=== PATIENT | female | born 1935 | race Caucasian/White ===

== ENCOUNTER 2018-01-07 09:06 | Day surgery (SDC) | payer MEDICARE, OTHER ==
[2018-01-07] MEDS ORDERED: DIPRIVAN 200 MG/20 ML IV ONE (09:07)
[2018-01-07] MEDS ORDERED: Lactated Ringers 1,000 ML IV ONE (09:27)
[2018-01-07] MEDS ORDERED: Lactated Ringers 1,000 ML IV SCH (09:45)
[2018-01-07] MEDS ORDERED: TETRACAINE 0.5% STERI-UNIT SOL OP ONE ×2 (09:45)
[2018-01-07] MEDS ORDERED: Ak-Dilate OPHTHALMIC*** 0.71 ML, Cyclogyl 1% OPHTH SOL 5 ML 0.71 ML, GATIFLOXACIN 0.5% ... OP ONE ×4 (09:45)
[2018-01-07] MEDS ORDERED: Zofran 4 MG/2 ML VIAL IV PRN (10:00)
[2018-01-07] MEDS ORDERED: ACETAZOLAMIDE 250 MG TABLET PO ONE (10:00)
[2018-01-07] MEDS ORDERED: BETADINE 5% OPHTHALMIC 30 ML OP ONE (11:00)
[2018-01-07] MEDS ORDERED: BSS 500 ML, Fortaz/Tazicef 1 GM** 0.2 G IO ONE ×2 (11:30)
[2018-01-07] MEDS ORDERED: LIDOCAINE HCL 1% AMPUL 5 ML IJ ONE (11:30)
[2018-01-07] MEDS ORDERED: Epinephrine Preservative Free 1 MG/ML INTRAOP ONE (11:30)
[2018-01-07] MEDS ORDERED: TYLENOL EXTRA STRENGTH 500 MG ONE (12:26)
[2018-01-07 12:30] VITALS: O2SAT 100
[2018-01-07] MEDS ORDERED: TYLENOL EXTRA STRENGTH 500 MG PO STA (12:35)
[2018-01-07 12:53] VITALS: PULSE 52
--- NOTE | 2018-01-07 13:34 | OP ---
DATE/TIME OF OPERATION: 01/07/2018 1136 TIME DICTATED: 1255 PREOPERATIVE DIAGNOSIS: Senile cataract of left eye. POSTOPERATIVE DIAGNOSIS: Senile cataract of left eye. SURGEON: Roxanne Stubbs MD CLAIM PROCESSING SPECIALIST: None. OPERATION: Cataract extraction of left eye with an intraocular lens implant. STANDARD __X___ COMPLEX ANESTHESIA: MAC. ___X___ Monitored anesthesia care in combination with topical and intra-cameral anesthesia (because of the established specific risk of reflux, arrhythmias, or an anxiety attack associated with ocular manipulation as well as difficulty of the armorer technician to manage such potentially catastrophic events while simultaneously attempting to complete the surgical procedure, it was deemed necessary for the patient's safety to have an anesthesiologist or a nurse insurance compliance analyst present during the procedure whenever possible. The anesthesiologist or the nurse insurance compliance analyst was utilized to monitor and regulate the intravenous sedation of the patient, so the patient was cooperative, relaxed, and comfortable). Topical anesthesia using Tetracaine eye drops together with intra cameral anesthesia using Lidocaine 1% MPF. The nurse was utilized to monitor the patient. ANESTHESIA PROVIDER: Edgar Murray CRNA. COMPLICATIONS: None. BLOOD LOSS: None. INDICATIONS: The patient is undergoing cataract surgery in the hopes of eliminating the visual complaints and difficulty. PROCEDURE: After arriving at the facility's outpatient surgery area, an IV was started; the patient was given 5 mg of p.o. Versed. (If an anesthesia provider was not monitoring the patient) The patient was then given topical anesthetic Tetracaine eye drops. A cotton pellet was soaked into a solution of a combination of Zymaxid 0.5%, Ignacio-Synephrine 2.5% and Ocufen (other drops might have been substituted referenced in the patient's record). The pellet was inserted by the RN into the lower conjunctival cul-de-sac with a sterile forceps and left for 20 minutes. The pellet was then removed by the RN with a sterile forceps before taking the patient to the operating room. The preoperative area nurse identified the patient and marked the correct eye to be operated on. I identified the correct eye to be operated on and marked it appropriately in the outpatient surgery area. The patient was then taken into the operating room. Tetracaine eye drops were installed again in the correct eye. The eyelids and the lashes and the lid margins were scrubbed with Betadine solution. One drop of the diluted Betadine solution was placed in the conjunctival cul-de-sac for 45 seconds and then was irrigated. A drop of Tetracaine Gel was placed in the conjunctival cul-de-sac. The patient's forehead was taped to secure it during the procedure. The patient was monitored. The patient was then draped in the usual way for this procedure. An eye speculum was used to separate the eyelids. The eye was then fixated and a temporal 2.5 mm incision was made in the clear cornea temporally at the limbus. Through the incision, 0.25 cc of 1% non-preserved lidocaine was injected into the anterior chamber for intracameral anesthesia. The anterior chamber was then filled with viscoelastic. The pupil was small. I felt that it would be safer to mechanically dilate the pupil. A Malyugin ring was used at this point which dilated the pupil. That was removed at the end of the procedure prior to aspiration of the viscoelastic from the anterior chamber and posterior to the intraocular lens implant. The cataract had a great amount of cortical changes. That rendered seeing the anterior capsule difficult for a safe performance of an anterior capsulotomy. I injected an air bubble into the anterior chamber. I then injected 1 ML of vision blue solution into the anterior chamber. The vision blue solution was irrigated from the anterior chamber after 30 seconds. The anterior capsule was stained which facilitated performing the anterior capsulotomy safely. After that was completed, a cystotome was introduced into the anterior chamber and a round anterior capsulotomy was performed. The capsule was removed by a forceps. Hydrodissection was next carried utilizing a 25-gauge cannula and balanced salt solution to delineate the cortical material from the capsule and the nucleus from the cortical material. The nucleus was rotated freely into the capsular bag with no difficulty. The phaco tip of the [employer] Phacoemulsifier was introduced into the anterior chamber and two grooves were made into the nucleus 90 degrees apart. Using two spatulas resulted into the nucleus being fractured into four quadrants. The phaco tip was then used to remove each quadrant of the nucleus. Viscoelastic was used during this process to protect the corneal endothelium. Once the entire nucleus was removed, the phaco tip then was removed and the irrigation tip was introduced into the eye and the cortex was removed. The posterior capsule was polished. It was noticed that there was a tear into the posterior capsule with few vitreous strands into the pupil plan. An anterior vitrectomy was performed. A 23.00 diopter, SN60WF, posterior chamber lens implant, was inspected and found to be grossly normal. The implant was inserted into the implant injector cartridge; Viscoelastic again was introduced into the anterior chamber, which filled the capsular bag. The implant injector's cartridge tip was placed at the limbal wound and the posterior chamber implant was released into the capsular bag and rotated appropriately. The implant was found to be into the capsular bag and it was centered. __X___ 0.2 ml of Tri-Moxi was introduced via 27 gauge cannula into the vitreous cavity through the ciliary processes. Viscoelastic was aspirated from the anterior chamber and posterior to the intraocular lens implant from the capsular bag using the irrigating tip. The anterior chamber was irrigated and filled with 5 cc antibiotic solution (500 cc of BSS plus 2 ml of Fortaz 100 mg/ml) ( if patient was not allergic to the medication). The lips of the corneal incision were hydrated using BSS solution. The anterior chamber was checked and found to be water tight. One drop each of antibiotic, steroid and NSAID drops (refer to chart for drops used) were placed in the conjunctival cul-de-sac of the operated eye. Patient tolerated the procedure quite well and left the operating room in satisfactory condition. DISCHARGE SUMMARY: The patient was released in stable condition. The patient and those with the patient were given an instruction sheet as of how to care for the eye after surgery as well as counseling on any abnormal laboratory studies by the postoperative RN. The patient was also given an appointment card for follow-up in the office and is to call immediately for any difficulties including but not limited to pain in the eye, decreased vision, discharge from the eye, headache and or fever. DISCHARGE DIAGNOSIS: Pseudophakia of left eye.
[2018-01-07 13:50] VITALS: BP 137/89
== END 2018-01-07 13:08 | disposition home or self-care (01) ==
LOC: SDC 09:06
PROVIDERS: ATTEND Ophthalmology
DX: H25.9 Unspecified age-related cataract (principal); I10 Essential (primary) hypertension; E78.00 Pure hypercholesterolemia, unspecified; E07.9 Disorder of thyroid, unspecified; Z79.899 Other long term (current) drug therapy
CPT/HCPCS: 66984; 67005; 94250; C1780; 99100; J0171; J2704; A9270-GY

== ENCOUNTER 2018-02-11 07:19 | Day surgery (SDC) | payer MEDICARE, OTHER ==
[~2018-02-11 07:19] MED LIST: Lactated Ringers 1,000 ML IV ONE
[2018-02-11] MEDS ORDERED: DIPRIVAN 200 MG/20 ML IV ONE (07:20)
[2018-02-11 07:57] VITALS: O2SAT 98
[2018-02-11] MEDS ORDERED: TETRACAINE 0.5% STERI-UNIT SOL OP ONE ×2 (08:00)
[2018-02-11] MEDS ORDERED: Lactated Ringers 1,000 ML IV SCH (08:00)
[2018-02-11] MEDS ORDERED: Ak-Dilate OPHTHALMIC*** 1.065 ML, Cyclogyl 1% OPHTH SOL 5 ML 1.065 ML, GATIFLOXACIN 0.5... OP ONE ×4 (08:00)
[2018-02-11] MEDS ORDERED: ACETAZOLAMIDE 250 MG TABLET PO ONE (10:00)
[2018-02-11] MEDS ORDERED: Zofran 4 MG/2 ML VIAL IV PRN (10:00)
[2018-02-11] MEDS ORDERED: BSS 500 ML, Fortaz/Tazicef 1 GM** 0.2 G IO ONE ×2 (10:00)
[2018-02-11] MEDS ORDERED: LIDOCAINE HCL 1% AMPUL 5 ML IJ ONE (10:00)
[2018-02-11] MEDS ORDERED: Epinephrine Preservative Free 1 MG/ML INTRAOP ONE (10:00)
[2018-02-11] MEDS ORDERED: BETADINE 5% OPHTHALMIC 30 ML OP ONE (10:00)
[2018-02-11 11:32] VITALS: BP 125/78; PULSE 63
--- NOTE | 2018-02-11 15:02 | OP ---
DATE/TIME OF OPERATION: 02/11/2018 0956 TIME DICTATED: 1208 PREOPERATIVE DIAGNOSIS: Senile cataract of right eye. POSTOPERATIVE DIAGNOSIS: Senile cataract of right eye. SURGEON: Roxanne Stubbs MD HOUSE PAINTING INSTRUCTOR: None. OPERATION: Cataract extraction of right eye with an intraocular lens implant. STANDARD __X___ COMPLEX ANESTHESIA: MAC. ___X___ Monitored anesthesia care in combination with topical and intra-cameral anesthesia (because of the established specific risk of reflux, arrhythmias, or an anxiety attack associated with ocular manipulation as well as difficulty of the special education tutor to manage such potentially catastrophic events while simultaneously attempting to complete the surgical procedure, it was deemed necessary for the patient's safety to have an anesthesiologist or a nurse service restorer emergency present during the procedure whenever possible. The anesthesiologist or the nurse service restorer emergency was utilized to monitor and regulate the intravenous sedation of the patient, so the patient was cooperative, relaxed, and comfortable). Topical anesthesia using Tetracaine eye drops together with intra cameral anesthesia using Lidocaine 1% MPF. The nurse was utilized to monitor the patient. ANESTHESIA PROVIDER: Adrian Matias CRNA. COMPLICATIONS: None. BLOOD LOSS: None. INDICATIONS: The patient is undergoing cataract surgery in the hopes of eliminating the visual complaints and difficulty. PROCEDURE: After arriving at the facility's outpatient surgery area, an IV was started; the patient was given 5 mg of p.o. Versed. (If an anesthesia provider was not monitoring the patient) The patient was then given topical anesthetic Tetracaine eye drops. A cotton pellet was soaked into a solution of a combination of Zymaxid 0.5%, Ignacio-Synephrine 2.5% and Ocufen (other drops might have been substituted referenced in the patient's record). The pellet was inserted by the RN into the lower conjunctival cul-de-sac with a sterile forceps and left for 20 minutes. The pellet was then removed by the RN with a sterile forceps before taking the patient to the operating room. The preoperative area nurse identified the patient and marked the correct eye to be operated on. I identified the correct eye to be operated on and marked it appropriately in the outpatient surgery area. The patient was then taken into the operating room. Tetracaine eye drops were installed again in the correct eye. The eyelids and the lashes and the lid margins were scrubbed with Betadine solution. One drop of the diluted Betadine solution was placed in the conjunctival cul-de-sac for 45 seconds and then was irrigated. A drop of Tetracaine Gel was placed in the conjunctival cul-de-sac. The patient's forehead was taped to secure it during the procedure. The patient was monitored. The patient was then draped in the usual way for this procedure. An eye speculum was used to separate the eyelids. The eye was then fixated and a temporal 2.5 mm incision was made in the clear cornea temporally at the limbus. Through the incision, 0.25 cc of 1% non-preserved lidocaine was injected into the anterior chamber for intracameral anesthesia. The anterior chamber was then filled with viscoelastic. The pupil was small. I felt that it would be safer to mechanically dilate the pupil. A Malyugin ring was used at this point which dilated the pupil. That was removed at the end of the procedure prior to aspiration of the viscoelastic from the anterior chamber and posterior to the intraocular lens implant. The cataract had a great amount of cortical changes. That rendered seeing the anterior capsule difficult for a safe performance of an anterior capsulotomy. I injected an air bubble into the anterior chamber. I then injected 1 ML of vision blue solution into the anterior chamber. The vision blue solution was irrigated from the anterior chamber after 30 seconds. The anterior capsule was stained which facilitated performing the anterior capsulotomy safely. After that was completed, a cystotome was introduced into the anterior chamber and a round anterior capsulotomy was performed. The capsule was removed by a forceps. Hydrodissection was next carried utilizing a 25-gauge cannula and balanced salt solution to delineate the cortical material from the capsule and the nucleus from the cortical material. The nucleus was rotated freely into the capsular bag with no difficulty. The phaco tip of the [employer] Phacoemulsifier was introduced into the anterior chamber and two grooves were made into the nucleus 90 degrees apart. Using two spatulas resulted into the nucleus being fractured into four quadrants. The phaco tip was then used to remove each quadrant of the nucleus. Viscoelastic was used during this process to protect the corneal endothelium. Once the entire nucleus was removed, the phaco tip then was removed and the irrigation tip was introduced into the eye and the cortex was removed. The posterior capsule was polished. It was noticed that there was a tear into the posterior capsule with few vitreous strands into the pupil plan. An anterior vitrectomy was performed. A 23.00 diopter, SN60WF, posterior chamber lens implant, was inspected and found to be grossly normal. The implant was inserted into the implant injector cartridge; Viscoelastic again was introduced into the anterior chamber, which filled the capsular bag. The implant injector's cartridge tip was placed at the limbal wound and the posterior chamber implant was released into the capsular bag and rotated appropriately. The implant was found to be into the capsular bag and it was centered. __X__ 0.2 ml of Tri-Moxi was introduced via 27 gauge cannula into the vitreous cavity through the ciliary processes. Viscoelastic was aspirated from the anterior chamber and posterior to the intraocular lens implant from the capsular bag using the irrigating tip. The anterior chamber was irrigated and filled with 5 cc antibiotic solution (500 cc of BSS plus 2 ml of Fortaz 100 mg/ml) ( if patient was not allergic to the medication). The lips of the corneal incision were hydrated using BSS solution. The anterior chamber was checked and found to be water tight. One drop each of antibiotic, steroid and NSAID drops (refer to chart for drops used) were placed in the conjunctival cul-de-sac of the operated eye. Patient tolerated the procedure quite well and left the operating room in satisfactory condition. DISCHARGE SUMMARY: The patient was released in stable condition. The patient and those with the patient were given an instruction sheet as of how to care for the eye after surgery as well as counseling on any abnormal laboratory studies by the postoperative RN. The patient was also given an appointment card for follow-up in the office and is to call immediately for any difficulties including but not limited to pain in the eye, decreased vision, discharge from the eye, headache and or fever. DISCHARGE DIAGNOSIS: Pseudophakia of right eye.
== END 2018-02-11 11:33 | disposition home or self-care (01) ==
LOC: SDC 07:19
PROVIDERS: ATTEND Ophthalmology
DX: H25.9 Unspecified age-related cataract (principal); I10 Essential (primary) hypertension; E78.00 Pure hypercholesterolemia, unspecified; E07.9 Disorder of thyroid, unspecified
CPT/HCPCS: 94250; 99100; C1780; J0171; J2704; A9270-GY

== ENCOUNTER 2019-08-29 15:52 | Emergency (ER) | payer MEDICARE, OTHER ==
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
[2019-08-29 19:20] VITALS: BP 168/73; PULSE 68; O2SAT 98
[2019-08-29] MEDS ORDERED: NORCO 5/325 MG PO ONE (19:37)
[2019-08-29] MEDS ORDERED: NORCO 5/325 MG ONE (20:04)
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
== END 2019-08-29 21:18 | disposition home or self-care (01) ==
LOC: ED 15:52
DX: M84.474A Pathological fracture, right foot, initial encounter for fracture (principal); V57.0XXA Driver of pick-up truck or van injured in collision with fixed or stationary object in nontraffic accident, initial encounter; Y93.9 Activity, unspecified; Y92.9 Unspecified place or not applicable; I10 Essential (primary) hypertension; E03.9 Hypothyroidism, unspecified; E78.00 Pure hypercholesterolemia, unspecified; S00.31XA Abrasion of nose, initial encounter; Z79.899 Other long term (current) drug therapy; Z85.42 Personal history of malignant neoplasm of other parts of uterus
CPT/HCPCS: 70450; 70486; 73080; 73552; 73560; 73590; 73610; 73630; 99284; A9270-GY

== ENCOUNTER 2020-04-17 20:30 | Emergency (ER) | payer MEDICARE, OTHER ==
[2020-04-17] MEDS ORDERED: APRESOLINE 20 MG/ML INJ IV ONE (20:54)
[2020-04-17] MEDS ORDERED: Catapres 0.1 MG PO ONE (20:54)
[2020-04-17] MEDS ORDERED: NORVASC 5 MG PO ONE (20:55)
[2020-04-17] MEDS ORDERED: Catapres 0.1 MG ONE (21:04)
[2020-04-17] MEDS ORDERED: NORVASC 5 MG ONE (21:05)
[2020-04-17] MEDS ORDERED: Vasotec 10 MG ONE (21:07)
[2020-04-17 21:10] LABS: Absolute Neutrophil Ct (ANC) 6.15 (1.4-6.9); BASOPHIL % 0.1 % (0.0-0.4); Basophil (Absolute #) 0.01 (0-0.4); Eosinophil (Absolute #) 0 (0-0.5); Hematocrit 40.8 % (35-47); Hemoglobin 12.9 gm/dl (12.0-16.0); Lymphocytes % 16.8 % (24.0-44.0); Mean Cell Volume 98.8 fl (78-100); Mean Corpuscular Hemoglobin 31.2 pg (26-32); Mean Corpuscular Hgb Concent. 31.6 g/dl (32-36); Mean Platelet Volume 9.9 fl (7.5-11.0); Monocyte (Absolute #) 0.76 (0.0-1.3); Monocytes % 9.1 % (0.0-12.0); Platelet Count 231 K/mm3 (150-450); Red Blood Count 4.13 M/mm3 (4.1-5.4); Red Cell Distribution Width 13.5 % (11.5-14.0); White Blood Count 8.3 K/mm3 (4.0-10.5)
[2020-04-17 21:15] LABS: ALBUMIN 4.4 g/dL (3.5-5.0); ANION GAP 12.9 MEQ/L (5-15); BILIRUBIN,TOTAL 0.3 mg/dL (0.2-1.3); Calcium 9.3 mg/dL (8.4-10.2); Creatinine 1 1.11 mg/dL (0.52-1.04); EST GLOMERULAR FILTRATION RATE 49.8 ML/MIN; Potassium 4.8 mmol/L (3.5-5.1); Total Protein 7.5 g/dL (6.3-8.2)
[2020-04-17 21:28] VITALS: O2SAT 96
[2020-04-17 21:50] LABS: Appearance CLEAR (CLEAR); Bilirubin NEGATIVE (NEGATIVE); Blood NEGATIVE Ery/ul (0-5); Epithelial Cells RARE /HPF (FEW); Glucose 50 mg/dL (NEGATIVE); Ketones NEGATIVE (NEGATIVE); Leukocyte Esterase NEGATIVE (NEGATIVE); Mucus SLIGHT /HPF (NEGATIVE); Nitrite NEGATIVE (NEGATIVE); Protein,Urine Dip NEGATIVE (Negative); Specific Gravity 1.008 (1.005-1.025); Urobilinogen NEGATIVE mg/dL (0-1); WBC 0-2 /HPF (0-5)
[2020-04-17 21:52] LABS: Bacteria NONE SEEN /HPF (NEGATIVE)
[2020-04-17 22:04] VITALS: BP 152/82; PULSE 67
--- NOTE | 2020-04-17 22:04 | ERPHSYRPT ---
- History of Present Illness Time Seen by Provider: 04/17/20 20:45 Exam Limitations: no limitations Patient Subjective Stated Complaint: pt to ER with complaints of high blood pressure since last saturday. pt states she might have shingles on her head. pt states she has been taking her BP meds normally. Triage Nursing Assessment: pt to ER with hypertension. A&Ox4. ambulatory. skin pwd. Physician History: Patient is a 85-year-old white female who presents with a complaint of some headache and elevated blood pressure. Her blood pressure has apparently been elevated for the last 5 days. She also is being treated for shingles on a clinical basis from [facility]. She had not developed a rash. She has been on enalapril 5 mg daily and amlodipine 2.5 daily. Timing/Duration: day(s) (5) Activities at Onset: none Quality: sharpness Aspirin Treatment Today: no aspirin today Associated Symptoms: denies symptoms Prior Chest Pain/Cardiac Workup: no prior chest pain Allergies/Adverse Reactions: No Known Drug Allergies Allergy (Verified 04/17/20 20:44) Home Medications: Enalapril Maleate 10 mg PO DAILY 01/07/18 [History] Estradiol 1 mg [Estrace 1 mg] 1 mg PO DAILY 01/07/18 [History] Levothyroxine Sodium [Levoxyl] 50 mcg PO DAILY 01/07/18 [History] Simvastatin 20Mg [Zocor 20Mg] 20 mg PO DAILY 01/07/18 [History] Alprazolam 0.5 mg [xanAX 0.5 MG] 0.5 mg PO DAILY 08/29/19 [History] Famotidine [Pepcid] 40 mg PO DAILY 08/29/19 [History] Omeprazole 40 mg PO DAILY 04/17/20 [History] Hx Tetanus, Diphtheria Vaccination/Date Given: No Hx Influenza Vaccination/Date Given: Yes Hx Pneumococcal Vaccination/Date Given: No Immunizations Up to Date: Yes Travel Risk - International Travel Have you traveled outside of the country in past 3 weeks: No - Coronavirus Screening Are you exhibiting any of the following symptoms?: No Close contact with a COVID-19 positive Pt in past 14-21 Days: No - Review of Systems Constitutional: No Fever, No Chills Eyes: No Symptoms Ears, Nose, & Throat: No Symptoms Respiratory: No Cough, No Dyspnea Cardiac: No Chest Pain, No Edema, No Syncope Abdominal/Gastrointestinal: No Abdominal Pain, No Nausea, No Vomiting, No Diarrhea Genitourinary Symptoms: No Dysuria Musculoskeletal: No Back Pain, No Neck Pain Skin: No Rash Neurological: Headache, No Dizziness, No Focal Weakness, No Sensory Changes Psychological: No Symptoms Endocrine: No Symptoms All Other Systems: Reviewed and Negative - Past Medical History Pertinent Past Medical History: Yes Neurological History: No Pertinent History ENT History: Cataracts Cardiac History: High Cholesterol, Hypertension Respiratory History: No Pertinent History Endocrine Medical History: Hypothyroidism Musculoskeletal History: Arthritis GI Medical History: Ulcer History: No Pertinent History Psycho-Social History: No Pertinent History Female Reproductive Disorders: Uterine Cancer - Past Surgical History Past Surgical History: Yes Neuro Surgical History: No Pertinent History Cardiac: No Pertinent History Respiratory: No Pertinent History Gastrointestinal: No Pertinent History Genitourinary: No Pertinent History Musculoskeletal: No Pertinent History Female Surgical History: Hysterectomy, Other Other Surgical History: cyst removed from ovary - Social History Smoking Status: Never smoker Exposure to second hand smoke: No Drug Use: none Patient Lives Alone: No - Female History Hx Now: No - Nursing Vital Signs Nursing Vital Signs: Initial Vital Signs Temperature 98.5 F 04/17/20 20:36 Pulse Rate 78 04/17/20 20:36 Respiratory Rate 16 04/17/20 20:36 Blood Pressure 204/96 04/17/20 20:36 O2 Sat by Pulse Oximetry 97 04/17/20 20:36 Pain Scale Pain Intensity 6 - Physical Exam General Appearance: mild distress, alert Eye Exam: PERRL/EOMI, eyes nml inspection Ears, Nose, Throat Exam: normal ENT inspection, moist mucous membranes Neck Exam: normal inspection, non-tender, supple Respiratory Exam: normal breath sounds, lungs clear, No respiratory distress Cardiovascular Exam: regular rate/rhythm, normal heart sounds, No edema Gastrointestinal/Abdomen Exam: soft, No tenderness, No mass Back Exam: normal inspection, No CVA tenderness, No vertebral tenderness Extremity Exam: normal inspection, normal range of motion Neurologic Exam: alert, oriented x 3, cooperative, normal mood/affect, nml cerebellar function, sensation nml, No motor deficits Skin Exam: normal color, warm, dry Lymphatic Exam: No adenopathy SpO2: 96 Ordered Tests: Active Orders 24 hr Category Date Time Status CBC W DIFF Stat Lab 04/17/20 21:06 Completed CMP Stat Lab 04/17/20 21:06 Completed UA W/RFX UR CULTURE Stat Lab 04/17/20 21:21 Completed Medication Summary Generic Name Dose Route Start Last Admin Trade Name Hubert PRN Reason Stop Dose Admin Enalapril Maleate 10 mg 04/18/20 10:00 04/17/20 21:12 Vasotec 10 Mg PO 05/18/20 09:59 10 mg DAILY DAMIEN Administration Discontinued Medications Generic Name Dose Route Start Last Admin Trade Name Hubert PRN Reason Stop Dose Admin Amlodipine Besylate 10 mg 04/17/20 20:55 04/17/20 21:11 Norvasc 5 Mg PO 04/17/20 20:56 10 mg STAT ONE Administration Amlodipine Besylate Confirm 04/17/20 21:05 Norvasc 5 Mg Administered 04/17/20 21:06 Dose 10 mg .ROUTE .STK-MED ONE Clonidine 0.1 mg 04/17/20 20:54 04/17/20 21:09 Catapres 0.1 Mg PO 04/17/20 20:55 0.1 mg STAT ONE Administration Clonidine Confirm 04/17/20 21:04 Catapres 0.1 Mg Administered 04/17/20 21:05 Dose 0.1 mg .ROUTE .STK-MED ONE Enalapril Maleate Confirm 04/17/20 21:07 Vasotec 10 Mg Administered 04/17/20 21:08 Dose 10 mg .ROUTE .STK-MED ONE Hydralazine HCl 10 mg 04/17/20 20:54 Apresoline 20 Mg/Ml Inj IV 04/17/20 20:55 STAT ONE Lab/Rad Data: Laboratory Result Diagrams 04/17/20 21:06 04/17/20 21:06 Laboratory Results 04/17/20 04/17/20 04/17/20 Range/Units 21:21 21:06 21:06 WBC 8.3 (4.0-10.5) K/mm3 RBC 4.13 (4.1-5.4) M/mm3 Hgb 12.9 (12.0-16.0) gm/dl Hct 40.8 (35-47) % MCV 98.8 (78-100) fl MCH 31.2 (26-32) pg MCHC 31.6 L (32-36) g/dl RDW 13.5 (11.5-14.0) % Plt Count 231 (150-450) K/mm3 MPV 9.9 (7.5-11.0) fl Gran % 74.0 H (36.0-66.0) % Eos # (Auto) 0 (0-0.5) Absolute Lymphs (auto) 1.40 (1.0-4.6) Absolute Monos (auto) 0.76 (0.0-1.3) Lymphocytes % 16.8 L (24.0-44.0) % Monocytes % 9.1 (0.0-12.0) % Eosinophils % 0.0 (0.00-5.0) % Basophils % 0.1 (0.0-0.4) % Absolute Granulocytes 6.15 (1.4-6.9) Basophils # 0.01 (0-0.4) Sodium 135 L (137-145) mmol/L Potassium 4.8 (3.5-5.1) mmol/L Chloride 103 (98-107) mmol/L Carbon Dioxide 24 (22-30) mmol/L Anion Gap 12.9 (5-15) MEQ/L BUN 20 H (7-17) mg/dL Creatinine 1.11 H (0.52-1.04) mg/dL Estimated GFR 49.8 ML/MIN Glucose 175 H (74-106) mg/dL Calcium 9.3 (8.4-10.2) mg/dL Total Bilirubin 0.30 (0.2-1.3) mg/dL AST 25 (14-36) U/L ALT 27 (0-35) U/L Alkaline Phosphatase 58 (38-126) U/L Serum Total Protein 7.5 (6.3-8.2) g/dL Albumin 4.4 (3.5-5.0) g/dL Urine Color YELLOW (YELLOW) Urine Appearance CLEAR (CLEAR) Urine pH 6.0 (5-6) Ur Specific Varina 1.008 (1.005-1.025) Urine Protein NEGATIVE (Negative) Urine Ketones NEGATIVE (NEGATIVE) Urine Blood NEGATIVE (0-5) Davin/ul Urine Nitrite NEGATIVE (NEGATIVE) Urine Bilirubin NEGATIVE (NEGATIVE) Urine Urobilinogen NEGATIVE (0-1) mg/dL Ur Leukocyte Esterase NEGATIVE (NEGATIVE) Urine WBC (Auto) 0-2 (0-5) /HPF Urine RBC (Auto) NONE (0-2) /HPF U Epithel Cells (Auto) RARE (FEW) /HPF Urine Bacteria (Auto) NONE SEEN (NEGATIVE) /HPF Urine Mucus (Auto) SLIGHT (NEGATIVE) /HPF Urine Culture Reflexed NO (NO) Urine Glucose 50 (NEGATIVE) mg/dL - Progress Progress: improved Blood Culture(s) Obtained: No Antibiotics given: No - Departure Departure Disposition: Home Clinical Impression: Hypertension Condition: Stable Critical Care Time: No Referrals: FAVIOLA BORRERO MD [Primary Care Provider] - Instructions: Malignant Hypertension (DC) Prescriptions: Amlodipine Besylate 5 mg PO DAILY 30 Days #30 tablet Enalapril Maleate 10 mg [Vasotec 10 MG] 10 mg PO DAILY 30 Days #30 tablet
[2020-04-18] MEDS ORDERED: Vasotec 10 MG PO SCH (10:00)
== END 2020-04-17 22:17 | disposition home or self-care (01) ==
LOC: ED 20:30
DX: I10 Essential (primary) hypertension (principal); R51.9 Headache, unspecified; Z79.899 Other long term (current) drug therapy; E78.00 Pure hypercholesterolemia, unspecified
CPT/HCPCS: 36415; 80053; 81001; 85025; 99284; A9270-GY

== ENCOUNTER 2021-07-28 19:51 | Emergency (ER) | payer MEDICARE, OTHER ==
--- NOTE | 2021-07-28 19:57 | ERPHSYRPT ---
- History of Present Illness Time Seen by Provider: 07/28/21 19:55 Source: patient Exam Limitations: no limitations Physician History: This is an 86-year-old white female who has chronic back pain and it has been acutely worsening. Patient was seen by nurse practitioner yesterday and there was a plain lumbar film performed which did not show anything acute. Patient has not had any loss of bowel function or urinary bladder incontinence. She is able to ambulate. She does not complain of any leg or feet numbness. Patient was given an injection of Kenalog 40 mg intramuscularly yesterday and was also given baclofen prescription. Patient's nurse practitioner ordered an MRI of the lumbar spine. According to the nurse practitioner, the patient has a chronic T12 compression fracture and some lumbar spine ganglion and nerve root compression. The nurse practitioner called me to notify that the patient was already on her way to the emergency department because of back pain. Patient has a history of anxiety/depression. She has a history of elevated cholesterol and hypothyroidism. Patient also has a history of hypertension. Timing/Duration: yesterday Method of Injury: other (Patient was gardening on Saturday prior to this visit. She was bending and twisting.) Quality: sharp, stabbing Back Pain Location: lumbar spine, paraspinous muscles Severity of Pain-Max: moderate Severity of Pain-Current: moderate Modifying Factors: Improves With: movement Associated Symptoms: lower back pain, No urinary incontinence, No loss of bowel control, No constipation, No problems urinating, No numbness in legs/feet, No weakness, No sensory/motor loss, No tingling in legs/feet Previous symptoms: same symptoms as today, recently seen, recently treated Allergies/Adverse Reactions: No Known Drug Allergies Allergy (Verified 04/17/20 20:44) Home Medications: Enalapril Maleate 10 mg PO DAILY 01/07/18 [History] Estradiol 1 mg [Estrace 1 mg] 1 mg PO DAILY 01/07/18 [History] Levothyroxine Sodium [Levoxyl] 50 mcg PO DAILY 01/07/18 [History] Simvastatin 20Mg [Zocor 20Mg] 20 mg PO DAILY 01/07/18 [History] ALPRAZolam 0.5 MG [xanAX 0.5 MG] 0.5 mg PO DAILY 08/29/19 [History] Famotidine [Pepcid] 40 mg PO DAILY 08/29/19 [History] Omeprazole 40 mg PO DAILY 04/17/20 [History] Hx Tetanus, Diphtheria Vaccination/Date Given: No Hx Influenza Vaccination/Date Given: Yes Hx Pneumococcal Vaccination/Date Given: No Travel Risk - International Travel Have you traveled outside of the country in past 3 weeks: No - Coronavirus Screening Are you exhibiting any of the following symptoms?: No Close contact with a COVID-19 positive Pt in past 14-21 Days: No - Review of Systems Constitutional: No Symptoms Eyes: No Symptoms Ears, Nose, & Throat: No Symptoms Respiratory: No Symptoms Cardiac: No Symptoms Abdominal/Gastrointestinal: No Symptoms Genitourinary Symptoms: No Symptoms, No Urinary Retention Musculoskeletal: Back Pain Skin: No Symptoms Neurological: No Paralysis, No Parasthesia Psychological: No Symptoms Endocrine: No Symptoms Hematologic/Lymphatic: No Symptoms Immunological/Allergic: No Symptoms All Other Systems: Reviewed and Negative - Past Medical History Pertinent Past Medical History: Yes Neurological History: No Pertinent History ENT History: Cataracts Cardiac History: High Cholesterol, Hypertension Respiratory History: No Pertinent History Endocrine Medical History: Hypothyroidism Musculoskeletal History: Arthritis GI Medical History: Ulcer History: No Pertinent History Psycho-Social History: No Pertinent History Female Reproductive Disorders: Uterine Cancer - Past Surgical History Past Surgical History: Yes Neuro Surgical History: No Pertinent History Cardiac: No Pertinent History Respiratory: No Pertinent History Gastrointestinal: No Pertinent History Genitourinary: No Pertinent History Musculoskeletal: No Pertinent History Female Surgical History: Hysterectomy, Other Other Surgical History: cyst removed from ovary - Social History Smoking Status: Never smoker Exposure to second hand smoke: No Drug Use: none Patient Lives Alone: No - Nursing Vital Signs Nursing Vital Signs: Initial Vital Signs Temperature 98.8 F 07/28/21 19:59 Pulse Rate 65 07/28/21 19:59 Respiratory Rate 20 07/28/21 19:59 Blood Pressure 182/67 07/28/21 19:59 O2 Sat by Pulse Oximetry 97 07/28/21 19:59 Pain Scale Pain Intensity [Back] 10 Pain Intensity 10 - Physical Exam General Appearance: no apparent distress, alert, anxiety Eye Exam: PERRL/EOMI, eyes nml inspection Ears, Nose, Throat Exam: normal ENT inspection, moist mucous membranes Neck Exam: normal inspection, non-tender, supple, full range of motion Respiratory Exam: normal breath sounds, lungs clear, airway intact, No chest tenderness, No respiratory distress Cardiovascular Exam: regular rate/rhythm, normal heart sounds, normal peripheral pulses Gastrointestinal Exam: soft, normal bowel sounds, No tenderness, No guarding Pelvic Exam: not done Rectal Exam: not done Back Exam: normal inspection, normal range of motion, vertebral tenderness (Lumbar region), muscle spasm, No CVA tenderness Extremity Exam: normal inspection, normal range of motion, pelvis stable, No parasthesia Neurologic Exam: alert, oriented x 3, cooperative, adjudication specialist II-XII nml as tested, normal mood/affect, sensation nml, No intoxicated appearance Skin Exam: normal color, warm, dry Lymphatic Exam: No adenopathy SpO2 Interpretation: normal O2 Delivery: Room Air - Course Nursing assessment & vital signs reviewed: Yes Ordered Tests: Medication Summary Discontinued Medications Generic Name Dose Route Start Last Admin Trade Name Freq PRN Reason Stop Dose Admin Methylprednisolone Sodium 0 mg 07/28/21 20:25 07/28/21 20:52 Succinate 125 mg/ Sterile IM 07/28/21 20:26 125 mg Water 2 ml STAT ONE Administration Hydromorphone HCl 1 mg 07/28/21 20:25 07/28/21 20:53 Hydromorphone 1 Mg/1ml Inj 1 Mg/Ml Syringe IM 07/28/21 20:26 1 mg STAT ONE Administration Hydromorphone HCl Confirm 07/28/21 20:49 Hydromorphone 1 Mg/1ml Inj 1 Mg/Ml Syringe Administered 07/28/21 20:50 Dose 1 mg .ROUTE .STK-MED ONE Lorazepam 0.5 mg 07/28/21 20:26 07/28/21 20:53 Lorazepam 2 Mg/1 Ml 2 Mg Vial IM 07/28/21 20:27 0.5 mg STAT ONE Administration Lorazepam Confirm 07/28/21 20:48 Lorazepam 2 Mg/1 Ml 2 Mg Vial Administered 07/28/21 20:49 Dose 2 mg .ROUTE .STK-MED ONE Methylprednisolone Sodium Succinate Confirm 07/28/21 20:49 Methylprednis Sod Succ 125 Mg/2 Ml Vial Administered 07/28/21 20:50 Dose 125 mg .ROUTE .STK-MED ONE Ondansetron HCl 4 mg 07/28/21 20:25 07/28/21 20:54 Zofran 4 Mg/Udtablet Orally Disintegrating PO 07/28/21 20:26 4 mg STAT ONE Administration Ondansetron HCl Confirm 07/28/21 20:49 Zofran 4 Mg/Udtablet Orally Disintegrating Administered 07/28/21 20:50 Dose 4 mg .ROUTE .STK-MED ONE Sterile Water Confirm 07/28/21 20:48 Water For Injection,Sterile 10 Ml Vial Administered 07/28/21 20:49 Dose 10 ml IJ .STK-MED ONE - Progress Progress: improved, pain not gone completely, re-examined Progress Note: 07/28/21 20:27 I confirmed with the patient that she has not had any bowel or bladder incontinence. She does not have numbness and lack of sensation in both her lower extremities. Patient confirms that she just came here to get some better pain relief. Counseled pt/family regarding: diagnosis, need for follow-up - Departure Departure Disposition: Home Clinical Impression: Pain of lumbar spine with movement Condition: Stable Critical Care Time: No Referrals: FAVIOLA BORRERO MD [Primary Care Provider] - Follow up/PCP as directed Additional Instructions: Bedrest throughout the weekend. Stop your baclofen. Stop your meloxicam. Stop your Xanax (alprazolam). Use the new prescriptions for pain control. Contact your neurosurgeon/back specialist by phone on 07/31/2021 to make arrangements for further evaluation and management. Stop all sedating drugs other than the ones that I am providing you. Do not take the medication unless you are in pain. If you are not in pain did not take the medication except for prednisone. Prescriptions: Oxycodone HCl/Acetaminophen [Percocet 5-325 mg Tablet] 1 each PO Q12H PRN PRN #8 tablet MDD 2 PRN Reason: Moderate To Severe Pain Prednisone 10 mg [Deltasone 10 mg] 10 mg PO TID #12 tablet Orphenadrine Citrate 100 mg [Norflex 100 MG Tablet] 100 mg PO BID #10 tab
[2021-07-28] MEDS ORDERED: Hydromorphone 1 mg/ml Injection IM ONE (20:25)
[2021-07-28] MEDS ORDERED: solu-MEDROL 125 MG, Sterile H2O 10 ml 2 ML IM ONE ×2 (20:25)
[2021-07-28] MEDS ORDERED: ZOFRAN ODT 4 MG PO ONE (20:25)
[2021-07-28] MEDS ORDERED: Ativan 2 MG/1 ML VIAL IM ONE (20:26)
[2021-07-28] MEDS ORDERED: Ativan 2 MG/1 ML VIAL ONE (20:48)
[2021-07-28] MEDS ORDERED: Sterile H2O 10 ml IJ ONE (20:48)
[2021-07-28] MEDS ORDERED: solu-MEDROL ONE (20:49)
[2021-07-28] MEDS ORDERED: ZOFRAN ODT 4 MG ONE (20:49)
[2021-07-28] MEDS ORDERED: Hydromorphone 1 mg/ml Injection ONE (20:49)
[2021-07-28 21:26] VITALS: BP 205/91; PULSE 57; O2SAT 92
[2021-07-28] MEDS ORDERED: PERCOCET TABLET 5/325MG PO STA (21:28)
[2021-07-28] MEDS ORDERED: PERCOCET TABLET 5/325MG ONE (21:33)
== END 2021-07-28 21:45 | disposition home or self-care (01) ==
LOC: ED 19:51
DX: G89.29 Other chronic pain (principal); M54.59 Other low back pain; E78.5 Hyperlipidemia, unspecified; I10 Essential (primary) hypertension; Z79.891 Long term (current) use of opiate analgesic; Z79.52 Long term (current) use of systemic steroids; Z79.899 Other long term (current) drug therapy
CPT/HCPCS: 96372; 99284; J1170; J2060; J2930; Q0162; A9270-GY

== ENCOUNTER 2022-08-24 15:30 | Emergency (ER) | payer MEDICARE, OTHER ==
[2022-08-24] MEDS ORDERED: NORVASC 5 MG PO ONE (16:06)
[2022-08-24] MEDS ORDERED: NORVASC 5 MG ONE (16:17)
[2022-08-24 16:22] LABS: Absolute Neutrophil Ct (ANC) 3.08 x10^3/uL (1.4-6.9); BASOPHIL % 0.6 % (0.0-0.4); Basophil (Absolute #) 0.03 x10^3/uL (0-0.4); Eosinophil % 3.3 % (0.00-5.0); Eosinophil (Absolute #) 0.17 x10^3/uL (0-0.5); Hematocrit 38.5 % (35-47); Hemoglobin 12.2 g/dL (12.0-16.0); IMMATURE GRAN # 0.02 x10^3u/L (0.00-0.03); IMMATURE GRAN % 0.4 % (0.00-0.4); Lymphocytes % 25.1 % (24.0-44.0); Mean Corpuscular Hgb Concent. 31.7 g/dL (32-36); Mean Platelet Volume 9.5 fL (7.5-11.0); Monocyte (Absolute #) 0.58 x10^3/uL (0.0-1.3); Monocytes % 11.2 % (0.0-12.0); Neutrophil % 59.4 % (36.0-66.0); Platelet Count 194 x10^3/uL (150-450); Red Blood Count 3.93 x10^6/uL (4.1-5.4); Red Cell Distribution Width 13.2 % (11.5-14.0); White Blood Count 5.2 x10^3/uL (4.0-10.5)
[2022-08-24 16:41] LABS: ALBUMIN 4.4 g/dL (3.5-5.0); BILIRUBIN,TOTAL 0.4 mg/dL (0.2-1.3); Calcium 9.1 mg/dL (8.4-10.2); Creatinine 1 1.14 mg/dL (0.52-1.04); Potassium 4.7 mmol/L (3.5-5.1); Total Protein 7.7 g/dL (6.3-8.2)
--- NOTE | 2022-08-24 17:05 | ERPHSYRPT ---
- History of Present Illness Time Seen by Provider: 08/24/22 15:45 Source: patient, family Exam Limitations: no limitations Patient Subjective Stated Complaint: "low bottom number on blood pressure" Triage Nursing Assessment: pt to ED c/o hypotension x approx 4 days. pt reports BP readings 150/55 on different machines. states she feels fine now and denies pain but thought she should get her bottom number checked out. states she did feel light headed earlier today and thats what made her check her BP. pt takes HTN meds daily. heart sounds clear, lung sounds clear and equal bilaterally. skin pink,warm,dry Physician History: Patient is a 81-year-old female who presents with a concern about a low diastolic blood pressure. She says her pressure at home systolic was running 1 27-1 48 but the diastolic was 52-55 and she Consulted the Internet which told her that if her diastolic blood pressure was less than 60 she should seek medical evaluation.She denies any pain shortness of breath. Because of her low diastolic pressure she did not take her evening amlodipine and now has a diastolic pressure on arrival in the ER of greater than 200. Timing/Duration: today Severity: mild Allergies/Adverse Reactions: No Known Drug Allergies Allergy (Verified 08/24/22 15:34) Home Medications: Enalapril Maleate 10 mg PO DAILY 01/07/18 [History] Estradiol 1 mg [Estrace 1 mg] 1 mg PO DAILY 01/07/18 [History] Levothyroxine Sodium [Levoxyl] 50 mcg PO DAILY 01/07/18 [History] Simvastatin 20Mg [Zocor 20Mg] 20 mg PO DAILY 01/07/18 [History] ALPRAZolam 0.5 MG [xanAX 0.5 MG] 0.5 mg PO DAILY 08/29/19 [History] Famotidine [Pepcid] 40 mg PO DAILY 08/29/19 [History] Omeprazole 40 mg PO DAILY 04/17/20 [History] Hx Tetanus, Diphtheria Vaccination/Date Given: Yes Hx Influenza Vaccination/Date Given: Yes Hx Pneumococcal Vaccination/Date Given: Yes Travel Risk - International Travel Have you traveled outside of the country in past 3 weeks: No - Coronavirus Screening Are you exhibiting any of the following symptoms?: No Close contact with a COVID-19 positive Pt in past 14-21 Days: No - Vaccine Status Have you recieved a Covid-19 vaccination: Yes Bariatric Coordinator: Unknown - Vaccination Dates Dates if Unknown: unknown - Review of Systems Constitutional: No Fever, No Chills Eyes: No Symptoms Ears, Nose, & Throat: No Symptoms Respiratory: No Cough, No Dyspnea Cardiac: No Chest Pain, No Edema, No Syncope Abdominal/Gastrointestinal: No Abdominal Pain, No Nausea, No Vomiting, No Diarrhea Genitourinary Symptoms: No Dysuria Musculoskeletal: No Back Pain, No Neck Pain Skin: No Rash Neurological: No Dizziness, No Focal Weakness, No Sensory Changes Psychological: No Symptoms Endocrine: No Symptoms All Other Systems: Reviewed and Negative - Past Medical History Pertinent Past Medical History: Yes Neurological History: No Pertinent History ENT History: Cataracts Cardiac History: High Cholesterol, Hypertension Respiratory History: No Pertinent History Endocrine Medical History: Hypothyroidism Musculoskeletal History: Arthritis GI Medical History: Ulcer History: No Pertinent History Psycho-Social History: No Pertinent History Female Reproductive Disorders: Uterine Cancer - Past Surgical History Past Surgical History: Yes Neuro Surgical History: No Pertinent History Cardiac: No Pertinent History Respiratory: No Pertinent History Gastrointestinal: No Pertinent History Genitourinary: No Pertinent History Musculoskeletal: No Pertinent History Female Surgical History: Hysterectomy, Other Other Surgical History: cyst removed from ovary - Social History Smoking Status: Never smoker Exposure to second hand smoke: No Drug Use: none Patient Lives Alone: No - Nursing Vital Signs Nursing Vital Signs: Initial Vital Signs Temperature 98.1 F 08/24/22 15:34 Pulse Rate 73 08/24/22 15:34 Respiratory Rate 18 08/24/22 15:34 Blood Pressure 216/82 08/24/22 15:34 O2 Sat by Pulse Oximetry 98 08/24/22 15:34 Pain Scale Pain Intensity 0 - Physical Exam General Appearance: mild distress, alert Eye Exam: PERRL/EOMI, eyes nml inspection Ears, Nose, Throat Exam: normal ENT inspection, TMs normal, pharynx normal, moist mucous membranes Neck Exam: normal inspection, non-tender, supple, full range of motion Respiratory Exam: normal breath sounds, lungs clear, No respiratory distress Cardiovascular Exam: regular rate/rhythm, normal heart sounds, normal peripheral pulses Gastrointestinal/Abdomen Exam: soft, normal bowel sounds, No tenderness, No mass Back Exam: normal inspection, normal range of motion, No CVA tenderness, No vertebral tenderness Extremity Exam: normal inspection, normal range of motion, pelvis stable Neurologic Exam: alert, oriented x 3, cooperative, normal mood/affect, nml cerebellar function, nml station & gait, sensation nml, No motor deficits Skin Exam: normal color, warm, dry, No rash Lymphatic Exam: No adenopathy SpO2 Interpretation: normal SpO2: 96 O2 Delivery: Room Air - Course Nursing assessment & vital signs reviewed: Yes EKG Interpreted by Me: RATE (73), Sinus Rhythm, NORMAL AXIS, NORMAL INTERVALS, NORMAL ST-T, Other (Probable left ventricular hypertrophy) - Radiology Exams Chest X-ray Interpretation: Interpreted by me, Other (Elevated right hemidiaphragm) Ordered Tests: Active Orders 24 hr Category Date Time Status EKG-ER Only STAT Care 08/24/22 16:05 Active IV Insertion STAT Care 08/24/22 16:13 Active CHEST 1 VIEW (PORTABLE) Stat Exams 08/24/22 16:05 Taken CBC W DIFF Stat Lab 08/24/22 16:21 Completed CMP Stat Lab 08/24/22 16:21 Completed TROPONIN Q4H Lab 08/24/22 16:21 Completed TROPONIN Q4H Lab 08/24/22 20:15 Ordered TROPONIN Q4H Lab 08/25/22 00:15 Ordered Medication Summary Discontinued Medications Generic Name Dose Route Start Last Admin Trade Name Hubert PRN Reason Stop Dose Admin Amlodipine Besylate 10 mg 08/24/22 16:06 08/24/22 16:18 Amlodipine Besylate 5 Mg Tablet PO 08/24/22 16:07 10 mg STAT ONE Administration Amlodipine Besylate Confirm 08/24/22 16:17 Amlodipine Besylate 5 Mg Tablet Administered 08/24/22 16:18 Dose 10 mg .ROUTE .[employer] ONE Lab/Rad Data: Laboratory Result Diagrams 08/24/22 16:21 08/24/22 16:21 Laboratory Results 08/24/22 08/24/22 08/24/22 Range/Units 16:21 16:21 16:21 WBC 5.2 (4.0-10.5) x10^3/uL RBC 3.93 L (4.1-5.4) x10^6/uL Hgb 12.2 (12.0-16.0) g/dL Hct 38.5 (35-47) % MCV 98.0 (78-100) fL MCH 31.0 (26-32) pg MCHC 31.7 L (32-36) g/dL RDW 13.2 (11.5-14.0) % Plt Count 194 (150-450) x10^3/uL MPV 9.5 (7.5-11.0) fL Gran % 59.4 (36.0-66.0) % Immature Gran % (Auto) 0.4 (0.00-0.4) % Nucleat RBC Rel Count 0.0 (0.00-0.1) % Eos # (Auto) 0.17 (0-0.5) x10^3/uL Immature Gran # (Auto) 0.02 (0.00-0.03) x10^3u/L Absolute Lymphs (auto) 1.30 (1.0-4.6) x10^3/uL Absolute Monos (auto) 0.58 (0.0-1.3) x10^3/uL Absolute Nucleated RBC 0.00 (0.00-0.01) x10^3u/L Lymphocytes % 25.1 (24.0-44.0) % Monocytes % 11.2 (0.0-12.0) % Eosinophils % 3.3 (0.00-5.0) % Basophils % 0.6 (0.0-0.4) % Absolute Granulocytes 3.08 (1.4-6.9) x10^3/uL Basophils # 0.03 (0-0.4) x10^3/uL Sodium 138 (137-145) mmol/L Potassium 4.7 (3.5-5.1) mmol/L Chloride 104 (98-107) mmol/L Carbon Dioxide 25 (22-30) mmol/L Anion Gap 14.0 (5-15) MEQ/L BUN 26 H (7-17) mg/dL Creatinine 1.14 H (0.52-1.04) mg/dL Estimated GFR 48.0 ML/MIN Glucose 105 (74-106) mg/dL Calcium 9.1 (8.4-10.2) mg/dL Total Bilirubin 0.40 (0.2-1.3) mg/dL AST 34 (14-36) U/L ALT 29 (0-35) U/L Alkaline Phosphatase 73 (38-126) U/L Troponin I < 0.012 (0.000-0.034) ng/mL Serum Total Protein 7.7 (6.3-8.2) g/dL Albumin 4.4 (3.5-5.0) g/dL - Progress Progress: improved Progress Note: 08/24/22 17:25 Treatment with some 10 mg amlodipine resulted in more normalization of her blood pressures and she will be discharged we will follow-up with Dr. Borrero. Medical Desision Making - Independent Historian Additional History obtained from: Spouse - Diagnostic Testing Diagnostic test were ordered, analyzed, and reviewed by me: Yes Radiological Interpretation: Interpreted by me - Risk of complications The pt has a mod risk of morbidity or mortality based on: Need for prescription drug management - Departure Departure Disposition: Home Clinical Impression: Hypertension Condition: Stable Critical Care Time: No Referrals: FAVIOLA BORRERO MD [Primary Care Provider] - Follow up/PCP as directed Instructions: High Blood Pressure (DC)
[2022-08-24 17:40] VITALS: BP 143/60; PULSE 58; O2SAT 98
--- NOTE | 2022-08-24 22:06 | XRAY ---
Indication: Hypertension. Comparison: None Portable chest demonstrates right hemidiaphragm elevation with adjacent subsegmental atelectasis/scarring. Remaining lungs clear. Heart not enlarged. Bony thorax intact with osteopenia and mild degenerative changes. Impression: Nonacute chest with chronic features.
== END 2022-08-24 17:47 | disposition home or self-care (01) ==
LOC: ED 15:30
DX: I10 Essential (primary) hypertension (principal); E78.5 Hyperlipidemia, unspecified; Z79.899 Other long term (current) drug therapy
CPT/HCPCS: 36000; 36415; 71045; 80053; 84484; 85025; 93005; 99284; A9270-GY

== ENCOUNTER 2023-04-26 13:10 | Day surgery (SDC) | payer MEDICARE, OTHER ==
[2023-04-26 13:43] VITALS: RESP 16
[2023-04-26] MEDS: Lactated Ringers 1,000 ML IV SCH (14:57)
[2023-04-26] MEDS ORDERED: Amidate 20 MG/10 ML IV ONE (15:03)
[2023-04-26 16:02] VITALS: BP 157/70; PULSE 74; TEMP 97.9; O2SAT 96
--- NOTE | 2023-04-29 08:48 | OP ---
SURGERY DATE/TIME: 04/26/2023 PREOPERATIVE DIAGNOSIS: Persistent nausea and vomiting. POSTOPERATIVE DIAGNOSES: 1) The patient has grade 2 gastroesophageal reflux disease. 2) She has a 2 inch hiatal hernia. 3) She has minimal antritis. PROCEDURE: EGD. SURGEON: Teddy Holcomb M.D. ANESTHESIA: MAC. COMPLICATIONS: None. CONDITION: Stable. INDICATION: A patient requiring evaluation. DESCRIPTION OF PROCEDURE: Taken to endoscopy. Left lateral decubitus position. MAC sedation provided. Scope introduced. Pharyngoesophageal junction, esophagus, gastroesophageal junction inferior rim of esophagitis. She has a hiatal hernia. The fundus below the diaphragm body antrum just a slight amount of antritis. Pylorus satisfactory. Duodenal bulb satisfactory. Second portion satisfactory. Scope looped upon itself. A 2 inch hiatal hernia. Scope withdrawn. Certainly reflux and hiatal hernia but I did not think this is causing the amount of discomfort that she has been having. We will get a gallbladder ultrasound test and go from there.
== END 2023-04-26 16:00 | disposition home or self-care (01) ==
LOC: SDC 13:10
PROVIDERS: ATTEND Surgery
DX: K21.9 Gastro-esophageal reflux disease without esophagitis (principal); R11.2 Nausea with vomiting, unspecified; K44.9 Diaphragmatic hernia without obstruction or gangrene; J32.0 Chronic maxillary sinusitis
CPT/HCPCS: 93005

== ENCOUNTER 2023-08-14 18:01 | Emergency (ER) | payer MEDICARE, OTHER ==
[2023-08-14 18:24] VITALS: RESP 18; TEMP 97.8
--- NOTE | 2023-08-14 19:11 | ERPHSYRPT ---
- History of Present Illness Time Seen by Provider: 08/14/23 19:10 Source: patient Exam Limitations: no limitations Patient Subjective Stated Complaint: Started having back spams this morning when getting out of bed. Triage Nursing Assessment: Patient c/o mid to low back "spasms" off and on for past few days. Denies recent injuries. States fell off ladder 8 yrs ago and had t 12 fx and thinks may be due to fall. AAox3, Denies problems with ur ination. Last bm today. States history of injections in low back due to back pain states states today pain is higher towards the mid back. Physician History: 88-year-old female presents to our ED for evaluation and treatment of back pain. Patient states that she has chronic intermittent back spasms that started after she fell off of a ladder approximately 8 years ago. Patient states her current bout of back pain which is described as back spasms started 3 days ago. Patient states the spasms are not improving. Patient reports that steroid injection has helped her back spasms in the past. No interval trauma. No recent back procedures. No fever. No change in bowel bladder function. No lower extremity weakness. Symptoms are mild to moderate in intensity. No specific worsening or improving factors. No associated urinary symptomology. No dysuria urgency or frequency. Patient otherwise feels well. She voices no other complaints or concerns at this time. Portions of this note were created with voice recognition technology. There may be grammatical, spelling, punctuation or sound alike errors Timing/Duration: day(s) Method of Injury: other (No injury) Quality: aching Back Pain Location: lumbar spine (Spasms are the lumbosacral region of her low back. No radiation) Severity of Pain-Max: moderate Severity of Pain-Current: moderate Modifying Factors: Improves With: movement Associated Symptoms: denies symptoms Previous symptoms: same symptoms as today Allergies/Adverse Reactions: No Known Drug Allergies Allergy (Verified 04/26/23 13:31) Home Medications: Levothyroxine Sodium [Levoxyl] 50 mcg PO DAILY 01/07/18 [History] Simvastatin 20Mg [Zocor 20Mg] 20 mg PO DAILY 01/07/18 [History] ALPRAZolam 0.5 MG [xanAX 0.5 MG] 0.5 mg PO DAILY 08/29/19 [History] Famotidine [Pepcid] 40 mg PO DAILY 08/29/19 [History] PANTOPRAZOLE 40 mg Tablet [Protonix 40MG Tablet] 40 mg PO BID 04/26/23 [History] Hx Tetanus, Diphtheria Vaccination/Date Given: Yes Hx Influenza Vaccination/Date Given: Yes Hx Pneumococcal Vaccination/Date Given: Yes Immunizations Up to Date: Yes Travel Risk - International Travel Have you traveled outside of the country in past 3 weeks: No - Emerging Infectious Disease Are you exhibiting symptoms associated with any current EIDs: No - Review of Systems Constitutional: No Symptoms, No Fever, No Chills Eyes: No Symptoms Ears, Nose, & Throat: No Symptoms Respiratory: No Symptoms, No Cough, No Dyspnea Cardiac: No Symptoms, No Chest Pain, No Edema, No Syncope Abdominal/Gastrointestinal: No Symptoms, No Abdominal Pain, No Nausea, No Vomiting, No Diarrhea Genitourinary Symptoms: No Symptoms, , No Dysuria Musculoskeletal: No Symptoms, No Back Pain, No Neck Pain Skin: No Symptoms, No Rash Neurological: No Symptoms, No Dizziness, No Focal Weakness, No Sensory Changes Psychological: No Symptoms Endocrine: No Symptoms Hematologic/Lymphatic: No Symptoms Immunological/Allergic: No Symptoms All Other Systems: Reviewed and Negative - Past Medical History Pertinent Past Medical History: Yes Neurological History: No Pertinent History ENT History: Cataracts Cardiac History: High Cholesterol, Hypertension Respiratory History: No Pertinent History Endocrine Medical History: Hypothyroidism Musculoskeletal History: Arthritis GI Medical History: Ulcer History: No Pertinent History Psycho-Social History: No Pertinent History Female Reproductive Disorders: Uterine Cancer - Past Surgical History Past Surgical History: Yes Neuro Surgical History: No Pertinent History Cardiac: No Pertinent History Respiratory: No Pertinent History Gastrointestinal: No Pertinent History Genitourinary: No Pertinent History Musculoskeletal: No Pertinent History Female Surgical History: Hysterectomy, Other Other Surgical History: cyst removed from ovary - Social History Smoking Status: Never smoker Exposure to second hand smoke: No Drug Use: none Patient Lives Alone: No - Nursing Vital Signs Nursing Vital Signs: Initial Vital Signs Temperature 97.8 F 08/14/23 18:10 Pulse Rate 74 08/14/23 18:10 Respiratory Rate 18 08/14/23 18:10 Blood Pressure 162/59 08/14/23 18:10 O2 Sat by Pulse Oximetry 98 08/14/23 18:10 Pain Scale Pain Intensity 8 - Physical Exam General Appearance: no apparent distress, alert Eye Exam: PERRL/EOMI, eyes nml inspection Neck Exam: normal inspection, full range of motion, No meningismus, No midline tenderness Respiratory Exam: normal breath sounds, lungs clear, airway intact, No respiratory distress Cardiovascular Exam: regular rate/rhythm, normal heart sounds, normal peripheral pulses Gastrointestinal Exam: soft, other, No tenderness, No mass, No pulsatile mass Extremity Exam: normal inspection, normal range of motion, No calf tenderness, No pedal edema Neurologic Exam: alert, oriented x 3, cooperative, 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, normal mood/affect, sensation nml, No motor deficits Skin Exam: normal color, warm, dry, No rash Lymphatic Exam: No adenopathy SpO2 Interpretation: normal SpO2: 98 O2 Delivery: Room Air - Course Nursing assessment & vital signs reviewed: Yes - CT Exams Lumbar Spine CT Interpretation: Tele-radiologist Report (Osteopenia, multilevel degenerative disc disease, grade 1 L5 anterolisthesis remote T12 L3 inferior endplate fractures and scattered aortoiliac calcifications similar in appearance to 08/07/2021) Ordered Tests: Active Orders 24 hr Category Date Time Status LUMBAR SPINE W/O [CT] Stat Exams 08/14/23 19:12 Taken UA W/RFX UR CULTURE Stat Lab 08/14/23 19:15 Completed Medication Summary Discontinued Medications Generic Name Dose Route Start Last Admin Trade Name Freq PRN Reason Stop Dose Admin Dexamethasone Sodium Phosphate 10 mg 08/14/23 19:11 08/14/23 19:24 Dexamethasone Sod Phosphate 10 Mg/Ml IM 08/14/23 19:12 10 mg STAT ONE Administration Dexamethasone Sodium Phosphate Confirm 08/14/23 19:21 Dexamethasone Sod Phosphate 10 Mg/Ml Administered 08/14/23 19:22 Dose 10 mg .ROUTE .[facility] Ketorolac Tromethamine 30 mg 08/14/23 19:12 08/14/23 19:24 Ketorolac Tromethamine 30 Mg/Ml Inj IM 08/14/23 19:13 30 mg STAT ONE Administration Ketorolac Tromethamine Confirm 08/14/23 19:21 Ketorolac Tromethamine 30 Mg/Ml Inj Administered 08/14/23 19:22 Dose 30 mg .ROUTE .[facility] Lab/Rad Data: Laboratory Results 08/14/23 Range/Units 19:15 Urine Color Yellow (Yellow) Urine Appearance Clear (Clear) Urine pH 6.0 (4.6-8.0) Ur Specific [place] 1.010 (1.005-1.030) Urine Protein Negative (Negative) Urine Glucose (UA) Negative (Negative) mg/dL Urine Ketones Negative (Negative) Urine Blood Negative (Negative) Urine Nitrite Negative (Negative) Urine Bilirubin Negative (Negative) Urine Urobilinogen 1.0 A (0.2) mg/dL Ur Leukocyte Esterase Trace A (Negative) U Hyaline Cast (Auto) NONE SEEN (0-2) /LPF Urine Microscopic RBC 0-2 (0-5) /HPF Urine Microscopic WBC 3-5 (0-5) /HPF Ur Epithelial Cells Rare (None Seen) /HPF Urine Bacteria None Seen (None Seen) /HPF Urine Culture Reflexed NO (NO) - Progress Progress: improved Progress Note: 88-year-old female presents to emergency department for evaluation of back spasms. Patient experiences intermittent back spasms. Physical exam reveals back spasms along the lumbosacral spine. No acute findings on the CT lumbar spine. Urinalysis negative for UTI. Patient received Decadron and Toradol for pain control. Pain significantly improved. Patient able now to sit up and is comfortable. Patient requesting discharge. Will discharge patient home. Daughter at bedside states they have anti-inflammatory medication at home as well as additional steroids. Advised to hold off on the steroids as patient has long-acting steroid patient should be covered steroid ascencio for the next 2 to 3 days. They agree to follow-up with primary care doctor within 48 hours for evaluation. They voiced no other complaints or concerns at this time. Portions of this note were created with voice recognition technology. There may be grammatical, spelling, punctuation or sound alike errors Complexity problem addressed is moderate acute complicated. No critical care time. Complex of data reviewed and analyzed is moderate. Test ordered test reviewed results analyzed and correlated clinically with history and physical examination. Risk of complication and or risk of morbidity/mortality patient management is moderate. Test ordered test reviewed results analyzed and correlated clinically with history and physical exam. Vital stable. Time spent to discharge patient approximately 15 minutes. Plan of care established for shared decision making. No social determinants of health present impede follow- up. Portions of this note were created with voice recognition technology. There may be grammatical, spelling, punctuation or sound alike errors 08/14/23 22:23 Counseled pt/family regarding: lab results, diagnosis, need for follow-up, rad results - Departure Departure Disposition: Home Clinical Impression: Muscle spasm, Lumbosacral strain, Degenerative disc disease, Osteopenia Condition: Stable Critical Care Time: No Referrals: FAVIOLA BORRERO MD [Primary Care Provider] - Follow up/PCP as directed Additional Instructions: Discharge/Care Plan LAURY AVILEZ JHONNY was seen on 08/14/23 in the Emergency Room. The patient was counseled regarding Diagnosis,Lab results, Imaging studies, need for follow up and when to return to the Emergency Room. Prescriptions given: Discharge Note I have spoken with the patient and/or caregivers. I have explained the patient's condition, diagnosis and treatment plan based on the information available to me at this time. I have answered the patient's and/or caregiver's questions and addressed any concerns. The patient and/or caregivers have as good understanding of the patient's diagnosis, condition and treatment plan as can be expected at this point. The vital signs have been stable. The patient's condition is stable and appropriate for discharge from the emergency department. The patient will pursue further outpatient evaluation with the primary care physician or other designated or consulting physician as outlined in the discharge instructions. The patient and/or caregivers are agreeable to this plan of care and follow-up instructions have been explained in detail. The patient and/or caregivers have received these instruction. The patient/and or caregivers are aware that any significant change in condition or worsening of symptoms should prompt an immediate return to this or the closest emergency department or call 911.
[2023-08-14] MEDS ORDERED: TORAdol 30 mg Injection ONE (19:21)
[2023-08-14] MEDS ORDERED: DECADRON 10MG INJ. ONE (19:21)
[2023-08-14] MEDS: DECADRON 10MG INJ. IM ONE (19:24)
[2023-08-14] MEDS: TORAdol 30 mg Injection IM ONE (19:24)
[2023-08-14 20:09] LABS: Appearance Clear (Clear); Bacteria None Seen /HPF (None Seen); Bilirubin Negative (Negative); Blood Negative (Negative); Epithelial Cells Rare /HPF (None Seen); Glucose, Urine Negative (Negative); Hyaline Casts NONE SEEN /LPF (0-2); Ketones Negative (Negative); Leukocyte Esterase Trace (Negative); Nitrite Negative (Negative); Protein,Urine Dip Negative (Negative); RBC 0-2 /HPF (0-5)
[2023-08-14 20:12] LABS: ADD URINE CULTURE? NO (NO)
[2023-08-14 21:06] VITALS: BP 128/55; PULSE 65
[2023-08-14 22:08] VITALS: O2SAT 98
--- NOTE | 2023-08-15 08:48 | XRAY ---
Indication: Pain. Multiple contiguous axial images obtained through the lumbar spine. Sagittal and coronal reformatted images obtained. Comparison: Lumbar radiograph August 07, 2021. Osseous structures remain demineralized. Mild broad-based disc bulge at T12-L1 and L4-S1 levels. Minimal L4-L5 degenerative vacuum disc phenomena. No large disc herniation or spinal canal stenosis. Moderate bilateral L4-S1 degenerative facet hypertrophy. Partial sclerosis left SI joint either degenerative versus old injury. Sagittal and coronal reformatted images demonstrates normal lumbar lordosis with minimal grade 1 L5 anterolisthesis on S1. Remote appearing T12 and L3 inferior endplate fractures with approximately 25% height loss. L5-S1 disc space narrowing. No acute compression fracture or subluxation. Visualized noncontrasted soft tissues demonstrates mild scattered aortoiliac calcifications. Impression: Nonacute lumbar spine with chronic features, overall unchanged in appearance with respect to comparison exam. MRI may yield further information if there remains clinical concern.
== END 2023-08-14 22:37 | disposition home or self-care (01) ==
LOC: ED 18:01
DX: M62.830 Muscle spasm of back (principal); S39.012A Strain of muscle, fascia and tendon of lower back, initial encounter; M51.36 Other intervertebral disc degeneration, lumbar region; M85.88 Other specified disorders of bone density and structure, other site; E78.5 Hyperlipidemia, unspecified; I10 Essential (primary) hypertension; Z79.899 Other long term (current) drug therapy
CPT/HCPCS: 72131; 81001; 96372; 99284; J1100; J1885